=== PATIENT | male | born 1985 | race Hispanic/Latino ===

== ENCOUNTER → 2018-06-25 | Day surgery (SDC) | payer OTHER ==
[2018-06-23 14:55] LABS: BASOPHILS # (AUTO) 0.1 (0.0-0.1); BASOPHILS % 0.8 % (0.0-1.0); EOSINOPHILS # (AUTO) 0.5 (0.0-0.4); EOSINOPHILS % 7.2 % (0.0-6.0); HEMATOCRIT 44.7 % (38.2-49.6); HEMOGLOBIN 15.1 g/dL (14.0-18.0); LYMPHOCYTES # (AUTO) 2.5 (1.0-3.2); MEAN CORPUSCULAR HEMOGLOBIN 30.3 pg (28-32); MEAN CORPUSCULAR HGB CONC 33.8 g/dL (31-35); MEAN CORPUSCULAR VOLUME 89.8 fL (81-99); MONOCYTES # (AUTO) 0.6 (0.2-0.8); NEUTROPHILS # (AUTO) 3.5 (2.1-6.9); NEUTROPHILS % 48.7 % (38.7-80.0); PLATELET COUNT 277 x10e3/uL (140-360); RED BLOOD COUNT 4.98 x10e6/uL (4.3-5.7); RED CELL DISTRIBUTION WIDTH 12.9 % (11.7-14.4)
[2018-06-23 15:21] LABS: ANION GAP 14.3 mmol/L (8-16); BLOOD UREA NITROGEN 19 mg/dL (7-26); BUN/CREATININE RATIO 19 (6-25); CALCIUM 10.3 mg/dL (8.4-10.2); CARBON DIOXIDE 26 mmol/L (22-29); CHLORIDE 100 mmol/L (98-107); CREATININE, SERUM 0.98 mg/dL (0.72-1.25); EST GLOMERULAR FILTRATION RATE > 60 ML/MIN (60-); GLUCOSE 94 mg/dL (74-118); POTASSIUM 4.3 mmol/L (3.5-5.1); SODIUM 136 mmol/L (136-145)
[~2018-06-25] MED LIST: ACETAMINOPHEN 1000 MG/100 ML IV ONE; BUPIVACAINE 0.25%/EPI 30ML SDV INJ ONE; CEFAZOLIN SOD 1 GM VIAL ONE; DEXAMETHASONE SOD PHOS INJ 4 MG/ML VIAL ONE; FENTANYL CITRATE/PF 100MCG/2 ML INJ ONE; GLYCOPYRROLATE 0.2 MG/ML VIAL ONE; LIDOCAINE HCL 2% JELLY 5 ML TUBE ONE; LIDOCAINE HCL 2% LOCAL INJ 5 ML SDV VIAL INJ ONE; MEPERIDINE HCL INJ 50 MG/ML INJ ONE; MIDAZOLAM HCL 2 MG/2 ML VIAL ONE; MULTIVITAMINS1 EAC6 PO; NEOSTIGMINE 5 MG/5ML SYR ONE; ONDANSETRON HCL INJ 2 MG/ML VIAL ONE; PROPOFOL IV EMULSION 10 MG/ML 20 ML VIAL ONE; ROCURONIUM BROMIDE 10 MG/ML 5ML VIAL ONE; SEVOFLURANE INHAL SOLN 250 ML PEN BTL ONE; [UNRECOGNIZED DRUG - OTHER] IH
--- OUTSIDE RECORDS SUMMARY | 2018-06-25 07:02 | XMS REPORT ---
Author Author Jordana Hitchcock Organization [employer] Address Unknown Phone Unavailable Care Team Providers Care Ice Cream Server Name Role Phone Jordana Hitchcock CP Unavailable Allergies, Adverse Reactions, Alerts Substance Reaction Event Type N.K.D.A. Info Not Available Non Drug Allergy Problems Problem Type Condition Code Onset Dates Condition Status Problem Hyperkalemia E87.5 Active Problem Herpes simplex antibody positive R89.4 Active Problem Childhood asthma, unspecified asthma severity, unspecified whether complicated, unspecified whether persistent J45.909 Active Assessment Herpes simplex antibody positive R89.4 Active Assessment Hyperkalemia E87.5 Active Medications Medication Code System Code Instructions Start Date End Date Status Dosage ProAir HFA [facility] [id number] 108 (90 Base) MCG/ACT Inhalation every 6 hrs PRN Mar 16, 2018 Active 2 puffs as needed NO OTC meds taken [facility] [id number] Active not defined Vital Signs Date/Time: Mar 29, 2018 BMI 24.66 Index Weight 167 lbs Height 69 in Cardiac Monitoring Heart Rate 68 /min Blood Pressure Diastolic 70 mm Hg Blood Pressure Systolic 120 mm Hg Results No Known Results Summary Purpose [employer] Submission
--- OUTSIDE RECORDS SUMMARY | 2018-06-25 07:02 | XMS REPORT ---
Author Author Jordana Hitchcock Organization [employer] Address Unknown Phone Unavailable Care Team Providers Care E Commerce Merchant Name Role Phone Jordana Hitchcock CP Unavailable Allergies, Adverse Reactions, Alerts Substance Reaction Event Type N.K.D.A. Info Not Available Non Drug Allergy Problems Problem Type Condition Code Onset Dates Condition Status Assessment Encntr for general adult medical exam w/o abnormal findings Z00.00 Active Assessment Encntr screen for infections w sexl mode of transmiss Z11.3 Active Problem Childhood asthma, unspecified asthma severity, unspecified whether complicated, unspecified whether persistent J45.909 Active Assessment Childhood asthma, unspecified asthma severity, unspecified whether complicated, unspecified whether persistent J45.909 Active Medications Medication Code System Code Instructions Start Date End Date Status Dosage ProAir HFA [facility] [id number] 108 (90 Base) MCG/ACT Inhalation every 6 hrs PRN Mar 16, 2018 Active 2 puffs as needed NO OTC meds taken [facility] [id number] Active not defined Vital Signs Date/Time: Mar 16, 2018 BMI 24.51 Index Weight 166 lbs Height 69 in Temperature 98.7 F Cardiac Monitoring Heart Rate 76 /min Blood Pressure Diastolic 70 mm Hg Blood Pressure Systolic 110 mm Hg Results No Known Results Summary Purpose [employer] Submission
--- OUTSIDE RECORDS SUMMARY | 2018-06-25 07:02 | XMS REPORT | Continuity of Care Document ---
Author Author [facility] Interface Address Unknown Phone Unavailable Problems Problem Status Onset Date Classification Date Reported Comments Source Encntr for general adult medical exam w/o abnormal findings Active Diagnosis 03/17/2018 [facility] Encntr screen for infections w sexl mode of transmiss Active Diagnosis 03/17/2018 [facility] Childhood asthma, unspecified asthma severity, unspecified whether complicated, unspecified whether persistent Active Problem 06/05/2018 [facility] Hyperkalemia Active Problem 06/05/2018 [facility] Herpes simplex antibody positive Active Problem 06/05/2018 [facility] Inguinal bulge Active Diagnosis 06/04/2018 [facility] Acute sinusitis, unspecified Active Diagnosis 03/20/2016 [facility] Febrile illness Active Diagnosis 03/20/2016 [facility] Zika virus exposure Active Diagnosis 03/20/2016 [facility] Medications Medication Details Route Status Patient Instructions Ordering Provider Order Date Source ProAir HFA 2 puffs as needed Inhalation Active 108 (90 Base) MCG/ACT Inhalation every 6 hrs ZACHN Naldo 03/16/2018 [facility] Bactrim DS 1 tablet Orally Active 800-160 MG Orally Twice a day Dennise 03/17/2016 [facility] NO OTC meds taken not defined NA Active Naldo [facility] NO OTC meds taken Unknown NA Active Dennise [facility] Allergies, Adverse Reactions, Alerts Substance Category Reaction Severity Reaction type Status Date Reported Comments Source N.K.D.A. Adverse Reaction Info Not Available Adverse Reaction Active 06/03/2018 [facility] Immunizations Immunization Date Given Site Status Last Updated Comments Source Results Order Name Results Value Reference Range Date Interpretation Comments Source Vital Signs Vital Sign Value Date Comments Source Weight 171 06/03/2018 [facility] Height 69 06/03/2018 [facility] Temperature Oral (F) 98.0 F 06/03/2018 [facility] Heart Rate 65 06/03/2018 [facility] Diastolic (mm Hg) 82 06/03/2018 [facility] Systolic (mm Hg) 118 06/03/2018 [facility] Weight 167 03/29/2018 [facility] Height 69 03/29/2018 [facility] Heart Rate 68 03/29/2018 [facility] Diastolic (mm Hg) 70 03/29/2018 [facility] Systolic (mm Hg) 120 03/29/2018 [facility] Weight 166 03/16/2018 [facility] Height 69 03/16/2018 [facility] Temperature Oral (F) 98.7 F 03/16/2018 [facility] Heart Rate 76 03/16/2018 [facility] Diastolic (mm Hg) 70 03/16/2018 [facility] Systolic (mm Hg) 110 03/16/2018 [facility] Weight 161 03/17/2016 [facility] Height 69 03/17/2016 [facility] Temperature Oral (F) 98.4 F 03/17/2016 [facility] Heart Rate 78 03/17/2016 [facility] Diastolic (mm Hg) 70 03/17/2016 [facility] Systolic (mm Hg) 120 03/17/2016 [facility] Encounters Location Location Details Encounter Type Encounter Number Reason For Visit Attending Provider ADM Date DC Date Status Source [facility] fever [id number] 03/17/2016 03/17/2016 [facility] Procedures Procedure Code Date Perfomer Comments Source
--- OUTSIDE RECORDS SUMMARY | 2018-06-25 07:02 | XMS REPORT ---
Author Author Jordana Hitchcock Organization [employer] Address Unknown Phone Unavailable Care Team Providers Care Cotton Picker Operator Name Role Phone Jordana Hitchcock CP Unavailable Allergies, Adverse Reactions, Alerts Substance Reaction Event Type N.K.D.A. Info Not Available Non Drug Allergy Problems Problem Type Condition Code Onset Dates Condition Status Problem Hyperkalemia E87.5 Active Problem Herpes simplex antibody positive R89.4 Active Problem Childhood asthma, unspecified asthma severity, unspecified whether complicated, unspecified whether persistent J45.909 Active Assessment Inguinal bulge R19.09 Active Medications Medication Code System Code Instructions Start Date End Date Status Dosage ProAir HFA [facility] [id number] 108 (90 Base) MCG/ACT Inhalation every 6 hrs PRN Mar 16, 2018 Active 2 puffs as needed NO OTC meds taken [facility] [id number] Active not defined Vital Signs Date/Time: Jun 03, 2018 BMI 25.25 Index Weight 171 lbs Height 69 in Temperature 98.0 F Cardiac Monitoring Heart Rate 65 /min Blood Pressure Diastolic 82 mm Hg Blood Pressure Systolic 118 mm Hg Results No Known Results Summary Purpose [employer] Submission
--- OUTSIDE RECORDS SUMMARY | 2018-06-25 07:02 | XMS REPORT ---
Author Author Trudy Bailey Organization [employer] Address Unknown Phone Unavailable Care Team Providers Care Supervisor Acoustical Tile Carpenters Name Role Phone Trudy Bailey Unavailable Allergies No Known Allergies Problems Problem Type Condition Code Onset Dates Condition Status Problem Hyperkalemia E87.5 Active Problem Herpes simplex antibody positive R89.4 Active Problem Childhood asthma, unspecified asthma severity, unspecified whether complicated, unspecified whether persistent J45.909 Active Medications No Known Medications Results No Known Results Summary Purpose [employer] Submission
--- OUTSIDE RECORDS SUMMARY | 2018-06-25 07:03 | XMS REPORT ---
Author Author Agustina Bowden [facility] [employer] Address Unknown Phone Unavailable Care Team Providers Care Tool Designer Name Role Phone Agustina Bowden Unavailable Allergies, Adverse Reactions, Alerts Substance Reaction Event Type N.K.D.A. Info Not Available Non Drug Allergy Encounters Encounter Location Date fever [facility] Mar 17, 2016 Problems Problem Type Condition ICD-9 Code Onset Dates Condition Status Assessment Acute sinusitis, unspecified J01.90 Active Assessment Febrile illness R50.9 Active Assessment Zika virus exposure Z20.828 Active Medications Medication Code System Code Instructions Start Date End Date Status Dosage NO OTC meds taken [facility] [id number] Active Unknown Bactrim DS [facility] [id number] 800-160 MG Orally Twice a day Mar 17, 2016 Mar 24, 2016 Active 1 tablet Social History Social History Element Qualifiers Date Reported 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 none Mar 17, 2016 Where or with whom do you live ? . Mar 17, 2016 Tobacco Use: . Are you a: never smoker Mar 17, 2016 Ethnicity . Status , Is namibian your primary language? Yes Mar 17, 2016 Use of recreational / street drugs? . Answer: No Mar 17, 2016 Do you have pets? . Status: No Mar 17, 2016 hobbies/sports . Plays Soccer Mar 17, 2016 Depression Screening: . negative Mar 17, 2016 Marital Status: . Ora Mcnair Mar 17, 2016 Last Bone Density: . never Mar 17, 2016 Caffeine intake? . Status: Yes, What type: Coffee Mar 17, 2016 Do you exercise? . Answer: Yes, Type: walking, running Mar 17, 2016 Last Colonoscopy: . never Mar 17, 2016 Flu Vaccine: . no Mar 17, 2016 Do you drink alcohol? . Status: Yes, Type: Wine, How often? Socially, How much? Socially Mar 17, 2016 Family history Qualifier Description Comment Date Reported Maternal Grandmother asthma Mar 17, 2016 Paternal Grandmother alive Comment not available Mar 17, 2016 Siblings alive Comment not available Mar 17, 2016 Maternal Grandfather Comment not available Mar 17, 2016 Children none Mar 17, 2016 Father alive Comment not available Mar 17, 2016 Paternal Grandfather alive Comment not available Mar 17, 2016 Mother alive asthma Mar 17, 2016 Other: Comment not available Mar 17, 2016 Vital Signs Date/Time: Mar 17, 2016 Weight 161 lbs Height 69 in Temperature 98.4 F Cardiac Monitoring Heart Rate 78 /min Blood Pressure Diastolic 70 mm Hg Blood Pressure Systolic 120 mm Hg Results CBC Summary Purpose [employer]Works Submission
[2018-06-25 12:15] VITALS: BP 123/81
--- NOTE | 2018-06-25 12:15 | Operative Report ---
DATE OF PROCEDURE: June 25, 2018 PREOPERATIVE DIAGNOSIS: Right inguinal hernia. POSTOPERATIVE DIAGNOSIS: Right inguinal hernia. PROCEDURE PERFORMED: Repair of right inguinal hernia with the Ultrapro Hernia System, large size. ANESTHESIA: General endotracheal. ESTIMATED BLOOD LOSS: Minimal. DRAINS: None. COMPLICATIONS: None. INDICATIONS AND FINDINGS: This 33-year-old male is complaining of pain in the right groin after lifting at the gym. INTRAOPERATIVE FINDINGS: The patient had a lipoma of the cord as well as an indirect hernia sac. The Ultrapro Hernia System, large size, was deployed. DESCRIPTION OF PROCEDURE: With the patient lying on the operative table in the supine position, after administration of general anesthesia, he was prepped and draped for repair of a right inguinal hernia. Preemptive anesthesia was given with 0.25% Marcaine with epinephrine as an ilioinguinal nerve block and incisional nerve block. A transverse groin incision was made and deepened through the skin, subcutaneous tissue and Fletcher fascia until the external oblique aponeurosis was identified. This was incised along the course of its fibers, transecting the external inguinal ring. Medial and lateral leaves were developed. The cord was mobilized at the level of the pubic tubercle and retracted away from the operative field by a Shoup drain. The cremaster veil was incised. A lipoma of the cord was highly ligated using 2-0 Vicryl, and the sac was also highly ligated with a transfixion suture using 2-0 silk. At this point, we incised the transversalis fascia, then created a pocket using blunt dissection to accommodate the mesh. Then the Ultrapro Hernia System, large size, was deployed with the underlay part of the mesh over the direct space and the overlay part of the mesh over the inguinal canal floor. A slit was made to accommodate the cord. Then the mesh was secured to local tissues using a series of interrupted 2-0 Ethibond suture. The wound was irrigated. Bleeding points were cauterized. The wound was closed in layers using 2-0 Vicryl for the external oblique aponeurosis, 2-0 plain catgut for the soft tissues, and the skin was closed using javier. Sterile dressing was applied. The patient tolerated the procedure well and was taken to recovery room in stable condition. Job#: [id number]
== END | disposition home or self-care (01) ==
LOC: OR 06:58
PROVIDERS: ATTEND Surgery
DX: K40.90 Unilateral inguinal hernia, without obstruction or gangrene, not specified as recurrent (principal); D17.6 Benign lipomatous neoplasm of spermatic cord; J45.909 Unspecified asthma, uncomplicated; F41.9 Anxiety disorder, unspecified; Z01.812 Encounter for preprocedural laboratory examination
CPT/HCPCS: 36415; 49505; 80048; 85025; 88302; C1781; J0131; J0690; J1100; J2001 ×2; J2175; J2250; J2405; J2704